=== PATIENT | female | born 1930 | race Caucasian/White ===

== ENCOUNTER → 2017-02-06 | Emergency (ER) | payer OTHER ==
[~2017-02-06] MED LIST: ASPIRIN 81 MG CHEWABLE TABLETS PO ONE
--- NOTE | 2017-02-06 15:17 | PDOC ---
History of Present Illness <Adriana Messer - Last Filed: 02/06/17 16:12> - General History Source: Patient Exam Limitations: No Limitations <Kezia Granados - Last Filed: 02/06/17 19:03> - General Stated Complaint: CHEST PAIN Time Seen by Provider: 02/06/17 15:16 - History of Present Illness Initial Comments: 02/06/17 16:12 The patient is a 86 year old female, with a significant past medical history of femoral vein thrombosis, hypertension, CHF, mitral valve insufficiency, blindness s/p glaucoma, colostomy, diverticulosis, kyphosis, osteoarthritis , who presents to the emergency department via ems from [facility] with intermittent right sided chest burning since last night. The patient states her pain was a 2/10 in severity last night, localized to her right anterior chest. She can not recall how long her chest pain lasts, but states maybe like an hour. She reports feeling a warmth to her chest right now, however, reports it is not as bad as the burning from last night. She denies any other acute symptoms. She denies shortness of breath, lightheadedness, headache and dizziness. She denies fever, chills, nausea, vomit, diarrhea and constipation. She denies dysuria, frequency, urgency and hematuria. Allergies: NKDA PCP - Dr. Guevara (Adriana Messer) Past History <Adriana Messer - Last Filed: 02/06/17 16:12> <Kezia Granados - Last Filed: 02/06/17 19:03> - Past Medical History Allergies/Adverse Reactions: Allergies Allergy/AdvReac Type Severity Reaction Status Date / Time Sulfa (Sulfonamide Allergy Verified 02/06/17 17:00 Antibiotics) Home Medications: Ambulatory Orders Aspirin [ASA -] 81 mg PO DAILY 02/06/17 Bacitracin Ophthalmic Oint - 1 applic TD HS 02/06/17 Benzocaine/Menthol [Cepacol Sore Throat Lozenge] 1 each PO Q6H PRN 02/06/17 Cholecalciferol (Vitamin D3) [Vitamin D3] 1,000 unit PO DAILY 02/06/17 Cyclopentolate 1% Eye Drops [Cyclogyl 1% Eye Drops -] 1 drop OU BID 02/06/17 Furosemide 20 mg PO DAILY 02/06/17 Lactobacillus Rhamnosus GG [Culturelle] 1 each PO DAILY 02/06/17 Lactulose (Oral Use) [Cephulac -] 30 gm PO HS 02/06/17 Lorazepam 0.25 mg PO BID 02/06/17 Melatonin/Pyridoxine HCl (B6) [Melatonin 3 mg Tablet] 1 each PO HS 02/06/17 Metoprolol Tartrate 50 mg PO BID 02/06/17 Mirtazapine 30 mg PO HS 02/06/17 Paroxetine HCl 15 mg PO HS 02/06/17 Potassium Chloride 10 meq PO DAILY 02/06/17 Prednisolone 1% Ophthalmic [Pred Forte 1% -] 1 drop OU BID 02/06/17 Review of Systems - Review of Systems Able to Perform ROS?: Yes <Adriana Messer - Last Filed: 02/06/17 16:12> <Kezia Granados - Last Filed: 02/06/17 19:03> - Review of Systems Comments:: 02/06/17 16:12 CONSTITUTIONAL: Absent: fever, no chills, no fatigue EYES: Absent: visual changes ENT: Absent: ear pain, no sore throat CARDIOVASCULAR: (+) chest burning, Absent: no palpitations RESPIRATORY: Absent: cough, no SOB GASTROINTESTINAL: Absent: abdominal pain, no nausea, no vomiting, no constipation, no diarrhea GENITOURINARY: Absent: dysuria, no frequency, no hematuria MUSCULOSKELETAL: Absent: back pain, no arthralgia, no myalgia SKIN: Absent: rash NEURO: Absent: headache (Adriana Messer) *Physical Exam <Adriana Messer - Last Filed: 02/06/17 16:12> <Kezia Granados - Last Filed: 02/06/17 19:03> - Vital Signs Last Vital Signs Temp Pulse Resp BP Pulse Ox 97.8 F 59 L 17 120/58 95 02/06/17 15:28 02/06/17 16:41 02/06/17 16:41 02/06/17 16:41 02/06/17 15:55 - Physical Exam Comments: 02/06/17 16:12 GENERAL: The patient is in no acute distress. AAOx3 HEAD: Normal with no signs of trauma. EYES: (+) Pt is blind secondary to bilateral cataracts. ENT: Ears normal, nares patent, oropharynx clear without exudates. Moist mucous membranes. NECK: Normal range of motion, supple without lymphadenopathy, JVD, or masses. LUNGS: Breath sounds equal, clear to auscultation bilaterally. No wheezes, and no crackles. HEART:(+) Bradycardic with normal rhythm. murmur on left sternal border. normal S1 and S2 without rub or gallop. ABDOMEN: Soft, nontender, normoactive bowel sounds. No guarding, no rebound. No masses palpable. EXTREMITIES: Normal range of motion, no edema. No clubbing or cyanosis. No erythema, or tenderness. NEUROLOGICAL: Cranial nerves II through XII grossly intact. Normal speech. No focal neurological deficits. MUSCULOSKELETAL: Back non-tender to palpation, no CVA tenderness SKIN: Warm, Dry, normal turgor, no rashes or lesions noted. (Adriana Messer) Heart Score/ECG Review <Adriana Messer - Last Filed: 02/06/17 16:12> #1 ECG reviewed & interpreted by me at: 16:10 <Kezia Granados - Last Filed: 02/06/17 19:03> #1 02/06/17 16:10 Twelve-lead EKG was performed and reviewed by me. There is normal sinus rhythm with a slightly bradycardiac rate of 54 bpm. The axis is normal. The intervals are normal. LVH. ST elevation v1- v3. T wave inversion I, aVL (Kezia Granados) ED Treatment Course - LABORATORY CBC & Chemistry Diagram: 02/06/17 15:37 02/06/17 15:37 <Adriana Messer - Last Filed: 02/06/17 16:12> - LABORATORY CBC & Chemistry Diagram: 02/06/17 15:37 02/06/17 15:37 <Kezia Granados - Last Filed: 02/06/17 19:03> - ADDITIONAL ORDERS Additional order review: Laboratory Results 02/06/17 02/06/17 15:37 15:37 INR 1.04 Sodium 139 Potassium 4.3 Chloride 102 Carbon Dioxide 30 Anion Gap 7 L BUN 27 H Creatinine 0.7 Creat Clearance w eGFR > 60 Random Glucose 85 Calcium 8.4 L Magnesium 2.4 Total Bilirubin 0.5 AST 28 ALT 19 Alkaline Phosphatase 73 Creatine Kinase 100 Troponin I 0.02 Total Protein 7.0 Albumin 3.3 L 02/06/17 15:37 RBC 3.68 MCV 91.3 MCHC 33.8 RDW 15.0 MPV 8.8 Neutrophils % 60.3 Lymphocytes % 27.5 Monocytes % 9.3 Eosinophils % 1.5 Basophils % 1.4 - RADIOLOGY Radiology Studies Ordered: Category Date Time Status CHEST X-RAY PORTABLE* [RAD] Stat Radiology 02/06/17 15:17 Taken - Medications Given in the ED: ED Medications Discontinued Medications Generic Name Dose Route Start Last Admin Trade Name Freq PRN Reason Stop Dose Admin Aspirin 162 mg 02/06/17 15:17 02/06/17 16:14 Asa - PO 02/06/17 15:18 162 mg ONCE ONE Administration Medical Decision Making <Adriana Messer - Last Filed: 02/06/17 16:12> <Kezia Granados - Last Filed: 02/06/17 19:03> - Medical Decision Making 02/06/17 15:31 Dr. Guevara was paged via phone answering service requesting a call back for doctor to doctor consult. 02/06/17 15:35 Dr. Guevara returned the cl, the patient's case was discussed, and he requests a consult to Dr. Baltazar. Dr. Baltazar was called at the office at 15:50 requesting a call back for doctor to doctor consult. 02/06/17 15:47 The patient's EKG from today was faxed to Dr. Baltazar ([phone]). Dr. Baltazar confirmed he received the EKG at 16:00 and requests the patient be heparinized if her labs are within normal limits. The patient's labs are pending at this time. Will reassess. (Adriana Messer) 02/06/17 15:17 A portion of this note was documented by scribe services under my direction. I have reviewed the details of the note, within reason, and agree with the documentation with the following case summary and management plan written by me. Nursing documentation reviewed and incorporated into medical decision making 02/06/17 15:43 This patient is an 86-year-old female with a history of hypertension, colostomy (sigmoid volvulous), history of diverticulosis ?, resident of [facility]. Patient presents emergency department due to chest pain. She describes her chest pain as burning. She had an episode last night, was unable to tell me how long it lasted for. She woke this morning and felt well, stated she then developed chest burning Currently it is 1/10 No shortness of breath no palpitations no chest wall trauma 02/06/17 15:[address] Guevara. No old EKGs prior to yesterday. Requests a consult to Dr. Baltazar. 02/06/17 15:[address] Baltazar 02/06/17 15:48 02/06/17 17:[address] Baltazar, pt should be placed on Heparin drip 02/06/17 18:08 Laboratory Tests 02/06/17 02/06/17 15:37 15:37 WBC 5.7 Hgb 11.3 Hct 33.6 Plt Count 196 BUN 27 H Creatinine 0.7 Creatine Kinase 100 Troponin I 0.[address] Guevara Pt can be sent back to the intermediate (Kezia Granados) *DC/Admit/Observation/Transfer <Adriana Messer - Last Filed: 02/06/17 16:12> - Discharge Dispostion Admit: No <Kezia Granados - Last Filed: 02/06/17 19:03> Diagnosis at time of Disposition: Chest pain Qualifiers: Chest pain type: unspecified Qualified Code(s): R07.9 - Chest pain, unspecified - Discharge Dispostion Condition at time of disposition: Stable - Referrals Referrals: Zachariah Guevara MD [Primary Care Provider] - - Patient Instructions Printed Discharge Instructions: DI for Chest Pain - Attestations Scribe Attestion: 02/06/17 16:14 Documentation prepared by Adriana Messer, acting as clinical medical transcriptionist for Kezia Granados MD (Adriana Messer)
[2017-02-06 15:33] VITALS: TEMP 97.8; BMI 21.2
[2017-02-06 16:12] LABS: INR 1.04 (0.82-1.09); PROTHROMBIN TIME (PATIENT) 11.4 SEC (9.98-11.88)
[2017-02-06 16:23] LABS: BASOPHIL 1.4 % (0-2.0); EOSINOPHIL 1.5 % (0-4.5); MCH 30.8 pg (25.7-33.7); MCHC 33.8 g/dl (32.0-36.0); MEAN CELL VOLUME 91.3 fl (80-96); MEAN PLT VOLUME 8.8 fl (7.5-11.1); NEUTROPHILS 60.3 % (42.8-82.8); PLATELET COUNT 196 K/MM3 (134-434); WHITE BLOOD COUNT 5.7 K/mm3 (4.0-10.0)
[2017-02-06 16:40] LABS: ALBUMIN 3.3 g/dl (3.4-5.0); ANION GAP 7 (8-16); BILIRUBIN,TOTAL 0.5 mg/dL (0.2-1.0); CALCIUM 8.4 mg/dL (8.5-10.1); CO2 30 mmol/L (21-32); CREATININE 0.7 mg/dL (0.55-1.02); GLUCOSE,RANDOM 85 mg/dL (74-106); MAGNESIUM 2.4 mg/dL (1.8-2.4); SGOT/AST 28 U/L (15-37); SGPT/ALT 19 U/L (12-78)
[2017-02-06 16:42] VITALS: PULSE 59
[2017-02-06 16:42] LABS: ALK PHOS 73 U/L (45-117); CPK 100 IU/L (26-192); TROPONIN I 0.02 ng/ml (0.00-0.05)
--- NOTE | 2017-02-06 16:44 | EKG ---
Test Reason : Blood Pressure : / mmHG Vent. Rate : 054 BPM Atrial Rate : 054 BPM P-R Int : 180 ms QRS Dur : 094 ms QT Int : 516 ms P-R-T Axes : 026 043 098 degrees QTc Int : 489 ms SINUS BRADYCARDIA LEFT VENTRICULAR HYPERTROPHY WITH REPOLARIZATION ABNORMALITY ABNORMAL ECG NO PREVIOUS ECGS AVAILABLE Confirmed by TYSON CHAPIN MD ([id number]) on 02/06/2017 4:43:49 PM Referred By: Confirmed By:TYSON CHAPIN MD
--- NOTE | 2017-02-06 16:58 | PN ---
Progress Note (short form) - Note Progress Note: Came to [facility] to see patient who was sent from [facility] due to chest pain(warm feeling on right low chest) and markedly abnormal EKG. ON exam the patient is comfortable in NAD. She does has 1/6 right sided anterior chest pain, reproducible with palpation. Ekg today at the ER does not show significant difference from EKG from 02/06/17 from [facility]. Vital Signs - 24 hr 02/06/17 02/06/17 02/06/17 15:28 15:55 16:41 Temperature 97.8 F Pulse Rate 55 L Pulse Rate [ 59 L Apical] Respiratory 17 17 Rate Blood Pressure 127/50 Blood Pressure 120/58 [Right Arm] O2 Sat by Pulse 92 L 95 Oximetry (%) On exam-pale thin F 86 y.o F in bed. No JVD. Legaly blind. Lungs Clear. Heart S1S2S3 with left chest 3-4/6 SM and diastolic murmur. Abdomen soft , NT/ND-colostomy bag inflated. Multiple hand deformities. Moves all extremities, no aphasia, no dysarthria. Laboratory Results - last 24 hr 02/06/17 02/06/17 02/06/17 15:37 15:37 15:37 WBC 5.7 RBC 3.68 Hgb 11.3 Hct 33.6 MCV 91.3 MCH 30.8 MCHC 33.8 RDW 15.0 Plt Count 196 MPV 8.8 Neutrophils % 60.3 Lymphocytes % 27.5 Monocytes % 9.3 Eosinophils % 1.5 Basophils % 1.4 INR 1.04 Sodium 139 Potassium 4.3 Chloride 102 Carbon Dioxide 30 Anion Gap 7 L BUN 27 H Creatinine 0.7 Creat Clearance w eGFR > 60 Random Glucose 85 Calcium 8.4 L Magnesium 2.4 Total Bilirubin 0.5 AST 28 ALT 19 Alkaline Phosphatase 73 Creatine Kinase 100 Troponin I 0.02 Total Protein 7.0 Albumin 3.3 L EKG read by cardiology-SB, LVH with repolarization abnormalities. Of note right precordial ST elevations are convex. Impression 86 y.o F with mitral valve disease, diastolic CHF has episodes of muscular skeletal pain. The character of the chest pain, unchanging EKG with ST elevations likely from LVH and repolarization abnormalities , Normal Troponin I, AST, ALT, electrolytes make coronary ethiology of the chest pain unlikely. The patient is DNR/DNI. Plan D/c To [facility] was discussed with Dr. Granados. We will follow the patient at [facility].
[2017-02-06 20:54] LABS: TROPONIN I 0.02 ng/ml (0.00-0.05)
[2017-02-06 22:32] VITALS: BP 140/69
== END | disposition home or self-care (01) ==
LOC: JER 15:08
DX: R07.9 Chest pain, unspecified (principal); I10 Essential (primary) hypertension; I50.9 Heart failure, unspecified; H40.9 Unspecified glaucoma; M19.90 Unspecified osteoarthritis, unspecified site; I82.419 Acute embolism and thrombosis of unspecified femoral vein
CPT/HCPCS: 36415; 71010-TC; 80053; 83735; 84484; 85025; 85610; 93005; 93010; 99285-25